=== PATIENT | male | born 2000 | race Native Hawaiian/Other Pacific Islander ===

== ENCOUNTER 2020-10-27 13:41 | Emergency (ER) | payer SELFPAY ==
[2020-10-27 13:51] VITALS: BP 142/92
--- NOTE | 2020-10-27 14:37 | Event Note ---
ED Screening Note Date of service: 10/27/20 Time: 14:33 ED Screening Note: This initial assessment/diagnostic orders/clinical plan/treatment(s) is/are subject to change based on patients health status, clinical progression and re- assessment by fellow clinical providers in the ED. Further treatment and workup at subsequent clinical providers discretion. Patient/guardian urged not to elope from the ED as their condition may be serious if not clinically assessed and managed. Initial orders include:
--- NOTE | 2020-10-27 14:44 | Emergency Department Report ---
ED Chest Pain HPI - General Chief Complaint: Chest Pain Stated Complaint: CHEST PAIN Time Seen by Provider: 10/27/20 14:37 Source: patient Mode of arrival: Ambulatory Limitations: No Limitations - History of Present Illness Initial Comments: 19-year-old male presents to emergency room complaining of chest pain. Patient reports being Covid positive in September 2020. 3 days ago his repeat Covid test for Covid was negative. 3 days ago he started having with mid-sternal chest pain 3/10 off and on. Chest pain is non-radiating does not change with position or palpation. Patient denies shortness of breath he has no cough no fever no chills. Oxygen saturation on room air is 100% and his heart rate is 80. Patient is in no acute distress well appearing MD Complaint: chest pain Pain Location: other Pain Radiation: none (Midsternal) Quality: other (Mild) Consistency: intermittent Improves With: nothing Worsens With: nothing re: denies: nausea, vomting, diaphoresis, dyspnea, sense of impending doom, other Other Symptoms: denies: cough, fever, syncope, rash, acid taste in mouth, leg swelling, palpitations, burping Treatments Prior to Arrival: none Aspirin use within the Past 7 Days: (0) No - Related Data On Oral Contraceptives: No Previous Rx's Medication Instructions Recorded Last Taken Type Ibuprofen [Motrin] 600 mg PO Q8H PRN #20 tablet 10/27/20 Unknown Rx Allergies Allergy/AdvReac Type Severity Reaction Status Date / Time No Known Allergies Allergy Unverified 10/27/20 13:45 Heart Score - HEART Score History: Slightly suspicious EKG: Normal Age: < 45 Risk factors: 1-2 risk factors (obesity) Troponin: < normal limit HEART Score: 1 - Critical Actions Critical Actions: 0-3 pts:0.9-1.7%risk of adverse cardiac event.Candidate for discharge ED Review of Systems ROS: Stated complaint: CHEST PAIN Other details as noted in HPI Comment: All other systems reviewed and negative Constitutional: denies: chills, fever, malaise Eyes: denies: eye pain, eye discharge, vision change ENT: denies: ear pain, throat pain, dental pain, hearing loss, epistaxis Respiratory: denies: shortness of breath, SOB with exertion, SOB at rest, stridor, wheezing, other Cardiovascular: chest pain. denies: palpitations, dyspnea on exertion, orthopnea, edema, syncope, paroxysmal nocturnal dyspnea Endocrine: denies: excessive sweating, flushing, intolerance to cold, intolerance to heat Gastrointestinal: denies: abdominal pain, nausea, vomiting, diarrhea, constipation Genitourinary: denies: urgency, dysuria, frequency, hematuria, discharge Skin: denies: rash, lesions, change in color, change in hair/nails Neurological: denies: headache Psychiatric: denies: anxiety, depression, auditory hallucinations, visual hallucinations, homicidal thoughts Hematological/Lymphatic: denies: easy bleeding ED Past Medical Hx - Past Medical History Previous Medical History?: Yes Additional medical history: right leg with a puncture wound. 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 Tested positive for COVID - Surgical History Past Surgical History?: No - Social History Smoking Status: Never Smoker Substance Use Type: None - Medications Home Medications: Home Medications Medication Instructions Recorded Confirmed Last Taken Type Ibuprofen [Motrin] 600 mg PO Q8H PRN #20 tablet 10/27/20 Unknown Rx ED Physical Exam - General Limitations: No Limitations General appearance: alert, in no apparent distress - Head Head exam: Present: atraumatic - Eye Eye exam: Present: normal appearance - ENT ENT exam: Present: normal exam - Respiratory Respiratory exam: Present: normal lung sounds bilaterally - Cardiovascular Cardiovascular Exam: Present: regular rate, normal heart sounds - GI/Abdominal GI/Abdominal exam: Present: soft, normal bowel sounds - Extremities Exam Extremities exam: Present: normal inspection - Back Exam Back exam: Present: normal inspection - Neurological Exam Neurological exam: Present: alert, oriented X3 - Psychiatric Psychiatric exam: Present: normal affect - Skin Skin exam: Present: warm, dry, intact, normal color ED Course Vital Signs 10/27/20 13:48 Temperature 98.1 F Pulse Rate 80 Respiratory 18 Rate Blood Pressure 142/92 O2 Sat by Pulse 100 Oximetry - Reevaluation(s) Reevaluation #1: 10/27/20 15:17 Patient in no distress I discussed work-up and plan with Dr. Taylor she agrees that patient should have EKG and a chest x-ray. He is PERC negative MARIO score - Mario Score Age > 65: (0) No Aspirin use within the Past 7 Days: (0) No 3 or more CAD Risk Factors: (0) No 2 or more Angina events in past 24 hrs: (0) No Known CAD with more than 50% Stenosis: (0) No Elevated Cardiac Markers: (0) No ST Deviation Greater than 0.5mm: (0) No MARIO Score: 0 ED Medical Decision Making - EKG Data EKG shows normal: sinus rhythm Rate: normal - EKG Data When compared to previous EKG there are: previous EKG unavailable Interpretation: normal EKG - Radiology Data Radiology results: report reviewed - Medical Decision Making 19-year-old male status post Covid infection. He presented to the emergency room on today complaining of chest pain 3 days ago his Covid test was negative chest pain non-radiating 11/21 he denies. PERC negative. oxygen saturations 100% on room air heart rate is 80, normal sinus EKG, chest x-ray no acute findings - Differential Diagnosis Pleuritic chest ,pneumonia, atypical chest Critical Care Time: No Critical care attestation.: If time is entered above; I have spent that time in minutes in the direct care of this critically ill patient, excluding procedure time. ED Disposition Clinical Impression: Atypical chest pain, Costochondritis Disposition: - TO HOME OR SELFCARE Is pt being admited?: No Does the pt Need Aspirin: No Condition: Stable Instructions: Costochondritis, [id number], Chest Wall Pain, [id number], Nonspecific Chest Pain, Adult, [id number]-[id number], Chest Pain (ED) Additional Instructions: Drink plenty of fluids. Rest. Follow-up with your primary care doctor in 2 to 5 days or return to the emergency room for any worsening symptoms. Take ibuprofen 600 mg 1 tablet every 6-8 hours as needed for pain. Prescriptions: Ibuprofen [Motrin] 600 mg PO Q8H PRN #20 tablet PRN Reason: Pain Referrals: OUMAR MCKINNEY MD [Staff Physician] - 3-5 Days Time of Disposition: 15:20
--- NOTE | 2020-10-27 15:03 | XRay Report ---
CHEST 2 VIEWS INDICATION / CLINICAL INFORMATION: chest pain. COMPARISON: None available. FINDINGS: SUPPORT DEVICES: None. HEART / MEDIASTINUM: No significant abnormality. LUNGS / PLEURA: No significant pulmonary or pleural abnormality. No pneumothorax. ADDITIONAL FINDINGS: No significant additional findings. IMPRESSION: 1. No acute findings. Signer Name: Robert Arguello MD Signed: 10/27/2020 2:58 PM Workstation Name: [id number]
[2020-10-27] MEDS ORDERED: IBUPROFEN 600 MG TAB PO ONE (15:20)
== END 2020-10-27 16:16 | disposition home or self-care (01) ==
LOC: ED 13:41
DX: M94.0 Chondrocostal junction syndrome [Tietze] (principal); R07.89 Other chest pain; Z79.899 Other long term (current) drug therapy
CPT/HCPCS: 71046; 93005

== ENCOUNTER 2021-03-26 11:08 | Emergency (ER) | payer OTHER ==
[2021-03-26 11:57] VITALS: BP 142/76
--- NOTE | 2021-03-26 12:46 | Emergency Department Report ---
ED Male HPI - General Chief complaint: Urogenital-Male Stated complaint: PAIN IN GROIN Time Seen by Provider: 03/26/21 12:34 Source: patient Mode of arrival: Ambulatory Limitations: No Limitations - History of Present Illness Initial comments: Patient is a 20-year-old male bilateral testicular pain that began a week ago. He denies any fever, nausea, vomiting, diarrhea, testicular swelling, abdominal dysuria, penile discharge, nodules, lesions, blisters. He states he has not been sexually active since September. No history. No allergies to medications. - Related Data Previous Rx's Medication Instructions Recorded Last Taken Type Ibuprofen [Motrin] 600 mg PO Q8H PRN #20 tablet 10/27/20 Unknown Rx Allergies Allergy/AdvReac Type Severity Reaction Status Date / Time No Known Allergies Allergy Unverified 10/27/20 13:45 ED Review of Systems ROS: Stated complaint: PAIN IN GROIN Other details as noted in HPI Comment: All other systems reviewed and negative ED Past Medical Hx - Past Medical History Previous Medical History?: Yes Additional medical history: right leg with a puncture wound. 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 Tested positive for COVID - Social History Smoking Status: Never Smoker Substance Use Type: None - Medications Home Medications: Home Medications Medication Instructions Recorded Confirmed Last Taken Type Ibuprofen [Motrin] 600 mg PO Q8H PRN #20 tablet 10/27/20 Unknown Rx ED Physical Exam - General Limitations: No Limitations General appearance: alert, in no apparent distress - Head Head exam: Present: atraumatic, normocephalic - Eye Eye exam: Present: normal appearance - ENT ENT exam: Present: mucous membranes moist - Respiratory Respiratory exam: Absent: respiratory distress, accessory muscle use - GI/Abdominal GI/Abdominal exam: Present: soft. Absent: distended, tenderness, guarding, rebound, rigid - exam: Present: other (mild right sided testicular ttp, no scrotal edema, no skin changes, normal cremasteric reflex, normal testicular lie, supervisor wound: nely ng) - Neurological Exam Neurological exam: Present: alert, oriented X3 - Psychiatric Psychiatric exam: Present: normal affect, normal mood - Skin Skin exam: Present: warm, dry, intact ED Course Vital Signs 03/26/21 11:56 Temperature 99.4 F Pulse Rate 80 Respiratory 18 Rate Blood Pressure 142/76 O2 Sat by Pulse 98 Oximetry ED Medical Decision Making - Lab Data Lab Results 03/26/21 Range/Units 12:51 Urine Color Yellow (Yellow) Urine Turbidity Clear (Clear) Urine pH 5.0 (5.0-7.0) Ur Specific [place] 1.020 (1.003-1.030) Urine Protein <15 mg/dl (Negative) mg/dL Urine Glucose (UA) Neg (Negative) mg/dL Urine Ketones Neg (Negative) mg/dL Urine Blood Neg (Negative) Urine Nitrite Neg (Negative) Urine Bilirubin Neg (Negative) Urine Urobilinogen < 2.0 (<2.0) mg/dL Ur Leukocyte Esterase Neg (Negative) Urine WBC (Auto) < 1.0 (0.0-6.0) /HPF Urine RBC (Auto) 1.0 (0.0-6.0) /HPF Urine Mucus Few /HPF - Radiology Data Radiology results: report reviewed Ordering Physician: NICOLE BAÑUELOS Date of Service: 03/26/21 Procedure(s): US testicular doppler comp Accession Number(s): [id number] cc: NICOLE BAÑUELOS ULTRASOUND SCROTUM INDICATION: bilateral testicular pain. COMPARISON None available. FINDINGS: RIGHT TESTICLE: 3.8 x 2.5 x 3.1 cm. Normal echogenicity. Normal color flow. No solid or cystic lesions. RIGHT EPIDIDYMIS: A simple right epididymal cyst measures 2.0 x 1.3 x 2.4 cm. No other significant abnormality. LEFT TESTICLE: 4.0 x 2.0 x 3.6 cm. Normal echogenicity. Normal color flow. No solid or cystic lesions. LEFT EPIDIDYMIS: No significant abnormality. HYDROCELE: There is a small left hydrocele. VARICOCELE: None seen. ADDITIONAL FINDINGS: None. IMPRESSION: 1. No acute sonographic abnormality of the testes/brim. 2. Small left hydrocele. 3. Simple right epididymal cyst as above. Signer Name: Kei Cantu MD Signed: 03/26/2021 1:28 PM Workstation Name: [id number] Transcribed By: JUWAN Dictated By: Kei Cantu MD Electronically Authenticated By: Kei Cantu MD Signed Date/Time: 03/26/21 1328 DD/ 1325 TD/TT: - Medical Decision Making Patient is a 20-year-old male bilateral testicular pain that began a week ago. He denies any fever, nausea, vomiting, diarrhea, testicular swelling, abdominal dysuria, penile discharge, nodules, lesions, blisters. He states he has not been sexually active since September. No history. No allergies to medications. vss. on exam: mild right sided testicular ttp, no scrotal edema, no skin changes, normal cremasteric reflex, normal testicular lie, supervisor wound: tech. berenice ua is WNL. testicular US: 1. No acute sonographic abnormality of the testes/brim. 2. Small left hydrocele. 3. Simple right epididymal cyst as above. offered pt ppx treatment for STDs and he politely declined. discussed all results with pt and answered questions. advised pt Please follow-up with a clinic or the health department in order to have a full STD panel. Please follow-up with a urologist due to the testicular pain. Please have any partner tested and treated as well. Avoid sexual intercourse. Return to emergency room for new or worse symptoms. Critical care attestation.: If time is entered above; I have spent that time in minutes in the direct care of this critically ill patient, excluding procedure time. ED Disposition Clinical Impression: Epididymal cyst Testicular pain Qualifiers: Laterality: right Qualified Code(s): N50.811 - Right testicular pain Hydrocele Qualifiers: Hydrocele type: unspecified Qualified Code(s): N43.3 - Hydrocele, unspecified Disposition: DC-01 TO HOME OR SELFCARE Is pt being admited?: No Does the pt Need Aspirin: No Condition: Stable Instructions: Hydrocele, Adult Additional Instructions: Please follow-up with a clinic or the health department in order to have a full STD panel. Please follow-up with a urologist due to the testicular pain. Please have any partner tested and treated as well. Avoid sexual intercourse. Return to emergency room for new or worse symptoms. walk in clinic for STD testing: [facility] Address: [address] [place] [id number] Referrals: STEHPANIE GREENBERG MD [Staff Physician] - 2-3 Days (urology) [facility] [Outside] - 2-3 Days Time of Disposition: 13:45 Print Language: KISWAHILI
[2021-03-26 13:26] LABS: Bilirubin,Urine NEG (Negative); Blood,Urine NEG (Negative); Color,Urine Yellow (Yellow); Mucus,Urine FEW /HPF; Protein,Urine <15 mg/dL mg/dL (Negative); Urobilinogen,Urine < 2.0 mg/dL (<2.0); WBC,Urine < 1.0 /HPF (0.0-6.0)
--- NOTE | 2021-03-26 13:32 | Ultrasound Report ---
ULTRASOUND SCROTUM INDICATION: bilateral testicular pain. COMPARISON None available. FINDINGS: RIGHT TESTICLE: 3.8 x 2.5 x 3.1 cm. Normal echogenicity. Normal color flow. No solid or cystic lesion s. RIGHT EPIDIDYMIS: A simple right epididymal cyst measures 2.0 x 1.3 x 2.4 cm. No other significant ab normality. LEFT TESTICLE: 4.0 x 2.0 x 3.6 cm. Normal echogenicity. Normal color flow. No solid or cystic lesions . LEFT EPIDIDYMIS: No significant abnormality. HYDROCELE: There is a small left hydrocele. VARICOCELE: None seen. ADDITIONAL FINDINGS: None. IMPRESSION: 1. No acute sonographic abnormality of the testes/brim. 2. Small left hydrocele. 3. Simple right epididymal cyst as above. Signer Name: Kei Cantu MD Signed: 03/26/2021 1:28 PM Workstation Name: [id number]
== END 2021-03-26 13:50 | disposition home or self-care (01) ==
LOC: ED 11:08
DX: N50.3 Cyst of epididymis (principal); N43.3 Hydrocele, unspecified; Z79.899 Other long term (current) drug therapy
CPT/HCPCS: 81001; 93975; 99283